=== PATIENT | female | born 1995 | race Caucasian/White ===

== ENCOUNTER 2025-06-01 09:07 | Emergency (ER) | payer OTHER, SELFPAY ==
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
[2025-06-01 09:26] VITALS: BP 120/76; PULSE 67; RESP 18; TEMP 36.9; O2SAT 100
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
== END 2025-06-01 10:54 | disposition home or self-care (01) ==
PROVIDERS: Emergency Provider Nurse Practitioner; PCP Hospitalist
DX: S40.212A Abrasion of left shoulder, initial encounter (principal); S80.812A Abrasion, left lower leg, initial encounter; S90.32XA Contusion of left foot, initial encounter; W03.XXXA Other fall on same level due to collision with another person, initial encounter; Y93.55 Activity, bike riding; Z79.1 Long term (current) use of non-steroidal anti-inflammatories (NSAID)
CPT/HCPCS: 73080; 73590; 73610; 73630; 99204; G0463